=== PATIENT | male | born 1995 | race Caucasian/White ===

== ENCOUNTER 2019-02-10 08:41 | Emergency (ER) | payer OTHER ==
[~2019-02-10] VITALS: Ht 177.8 cm; Wt 70.0 kg
[2019-02-10] MEDS ORDERED: ONDANSETRON (ODT) 4 MG TAB ODT STA (08:46)
[2019-02-10] MEDS ORDERED: KETOROLAC 30 MG INJ IM STA (08:46)
[2019-02-10] MEDS ORDERED: HYDROmorphONE 2 MG/ML SYG IM STA (08:46)
[2019-02-10 08:47] VITALS: BP 118/84; PULSE 84; RESP 18; Ht 177.8 cm; Wt 70.0 kg
[2019-02-10] MEDS ORDERED: IBUP-1542 PO (10:09)
--- NOTE | 2019-02-10 10:43 | ERD ---
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 The patient was brought in by ambulance. He woke up with back pain. He denies fevers. He denies incontinence. He denies cancer or IV drugs. He feels like it might be a "pinched nerve". Upon review of old medical records this is the patient's first visit to the emergency department. He does not currently have a primary doctor. ROS All systems reviewed and are negative except as per history of present illness. Medications Home Meds Active Scripts Ibuprofen* (Motrin*) 600 Mg Tab, 600 MG PO Q6H PRN for PAIN AND OR ELEVATED TEMP, #30 TAB Prov:GUILLERMO ROMANO MD 02/10/19 Allergies Allergies: Coded Allergies: Sulfa (Sulfonamide Antibiotics) (Unverified Allergy, Unknown, 02/10/19) mirtazapine (Unverified Allergy, Unknown, 02/10/19) PMhx/Soc Medical and Surgical Hx: pt denies Medical Hx, pt denies Surgical Hx History of Surgery: No Hx Neurological Disorder: No Hx Respiratory Disorders: No Hx Cardiac Disorders: No Hx Psychiatric Problems: No Hx Miscellaneous Medical Probl: Yes (ETOH(in rehab)) Hx Alcohol Use: Yes Hx Substance Use: No Hx Tobacco Use: No Smoking Status: Never smoker FmHx Patient is adopted Physical Exam Vitals Vital Signs Date Temp Pulse Resp B/P (MAP) Pulse Ox O2 O2 Flow FiO2 Time Delivery Rate 02/10/19 98.2 84 18 118/84 99 08:47 (95) Physical Exam Const: No acute distress Head: Atraumatic Eyes: Normal Conjunctiva ENT: Normal External Ears, Nose and Mouth. Neck: Full range of motion. No meningismus. Resp: Clear to auscultation bilaterally Cardio: Regular rate and rhythm, no murmurs Abd: Soft, non tender, non distended. Normal bowel sounds Skin: No petechiae or rashes Back: Right-sided mid back pain with palpation, no rashes or step-off or deformity noted Ext: No cyanosis, or edema Neur: Awake and alert, strength is 5 out of 5 in all 4 extremities, sensation is intact Psych: Normal Mood and Affect Results 24 hrs Current Medications Medications Dose Sig/Poly Start Time Status Last (Trade) Ordered Route PRN Stop Time Admin Dose Reason Admin Ketorolac 30 mg ONCE STAT 02/10/19 DC 02/10/19 Tromethamine IM 08:46 09:01 (Toradol) 02/10/19 08:47 2 mg ONCE STAT 02/10/19 DC 02/10/19 Hydromorphone IM 08:46 09:01 HCl 02/10/19 08:47 (Dilaudid) Ondansetron 4 mg ONCE STAT 02/10/19 DC 02/10/19 HCl (Zofran ODT 08:46 09:01 Odt) 02/10/19 08:47 Procedures/MDM Patient is a 23-year-old male who presents with acute back pain. I believe his back pain is likely musculoskeletal in nature. I doubt epidural abscess, epidural hematoma, or cauda equina syndrome. I doubt aortic dissection or other serious vascular injury. The patient will be discharged with a prescription for ibuprofen. He was given Toradol and Dilaudid in the emergency department and feels better. He can return for any worsening symptoms. He was given a list of the local clinics as he does not currently have a primary doctor and should follow-up within the next 24 to 48 hours. Departure Diagnosis: Primary Impression: Back pain Back pain location: back pain in other location Chronicity: acute Qualified Codes: M54.9 - Dorsalgia, unspecified Condition: Fair Patient Instructions: Back Pain (Acute Or Chronic) Referrals: COMMUNITY CLINICS YOU HAVE RECEIVED A MEDICAL SCREENING EXAM AND THE RESULTS INDICATE THAT YOU DO NOT HAVE A CONDITION THAT REQUIRES URGENT TREATMENT IN THE EMERGENCY DEPARTMENT. FURTHER EVALUATION AND TREATMENT OF YOUR CONDITION CAN WAIT UNTIL YOU ARE SEEN IN YOUR DOCTORS OFFICE WITHIN THE NEXT 1-2 DAYS. IT IS YOUR RESPONSIBILITY TO MAKE AN APPOINTMENT FOR FOLOW-UP CARE. IF YOU HAVE A PRIMARY DOCTOR --you should call your primary doctor and schedule an appointment IF YOU DO NOT HAVE A PRIMARY DOCTOR YOU CAN CALL OUR PHYSICIAN REFERRAL HOTLINE AT IF YOU CAN NOT AFFORD TO SEE A PHYSICIAN YOU CAN CHOSE FROM THE FOLLOWING [facility] [address] [facility]. [facility] [address] [facility]. [facility] [address] [facility]. [facility] [address]. [facility] [address] [facility]. [facility] [address] Additional Instructions: Call your primary care doctor TOMORROW for an appointment during the next 1-2 days.See the doctor sooner or return here if your condition worsens before your appointment time. GUILLERMO ROMANO MD February 10, 2019 10:43
== END 2019-02-10 10:34 | disposition home or self-care (01) ==
LOC: E/R 08:41
DX: M54.6 Pain in thoracic spine (principal)
CPT/HCPCS: 96372; 99284; J1170; J1885